=== PATIENT | male | born 1950 | race Caucasian/White ===

== ENCOUNTER 2024-03-24 09:00 | Outpatient (RCR) | payer MEDICARE, SELFPAY | END 2024-05-07 13:43 | disposition home or self-care (01) | LOC: HO.PTCHIC 09:00 | PROVIDERS: PCP Internal Medicine; Visit Provider Internal Medicine | DX: G20.C Parkinsonism, unspecified (principal); R26.89 Other abnormalities of gait and mobility | CPT/HCPCS: 97110; 97112; 97163 ==